=== PATIENT | male | born 1955 | race Caucasian/White ===

== ENCOUNTER 2017-05-19 10:28 | Emergency (ER) | payer OTHER ==
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
[2017-05-19 13:36] VITALS: BP 127/73
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
== END 2017-05-19 13:35 | disposition home or self-care (01) ==
LOC: ER 10:28
DX: S39.012A Strain of muscle, fascia and tendon of lower back, initial encounter (principal); S16.1XXA Strain of muscle, fascia and tendon at neck level, initial encounter; V49.40XA Driver injured in collision with unspecified motor vehicles in traffic accident, initial encounter; M25.552 Pain in left hip; F17.210 Nicotine dependence, cigarettes, uncomplicated; I10 Essential (primary) hypertension
CPT/HCPCS: 72050; 72110; 99284